=== PATIENT | male | born 1970 | race Caucasian/White ===

== ENCOUNTER 2018-04-05 12:51 | Emergency (ER) | payer BC ==
[2018-04-05] MEDS ORDERED: Benzocaine 20% Topical Spray UD MUCMEM ONE (13:09)
[2018-04-05] MEDS ORDERED: Lidocaine 2% Viscous Solution 15 ML Cup PO ONE (13:09)
--- NOTE | 2018-04-05 13:27 | EDM.PDOC ---
ED HPI GENERAL MEDICAL PROBLEM - General Chief Complaint: ENT Problem Stated Complaint: TOOTHACHE Time Seen by Provider: 04/05/18 13:21 Source of Information: Reports: Patient History Limitations: Reports: No Limitations - History of Present Illness INITIAL COMMENTS - FREE TEXT/NARRATIVE: HISTORY AND PHYSICAL: []47-year-old male presenting with a cracked tooth History of Present Illness: []Patient was eating caramel popcorn last night and bit down on a kernel which cracked his filling He could only get into the dentist on April 09 has an appointment at that time He is here seeking pain medication asked for Vicodin I have explained to him that we do not give Vicodin for tooth pain His and him have expressed understanding of the reasoning that was explained Review of Systems: As per history of present illness and below otherwise all systems reviewed and negative. Past medical history: As per history of present illness and as reviewed below otherwise noncontributory. Surgical history: As per history of present illness and as reviewed below otherwise noncontributory. Social history: No reported history of drug or alcohol abuse. Family history: As per history of present illness and as reviewed below otherwise noncontributory. Physical exam: Patient is alert and oriented answering questions appropriately in full sentences without any short shortness of breath. Patient is nontoxic in appearance. HEENT: Atraumatic, normocehpalic, pupils reactive, negative for conjunctival pallor or scleral icterus, mucous membranes moist, throat clear, neck supple, nontender, trachea midline. Tooth #30 with filling that is cracked no edema noted to the gumline Lungs: Clear to auscultation, breath sounds equal bilaterally, chest non tender. Heart: S1S2, regular, negative for clicks, rubs, or JVD. Abdomen: Soft, nondistended, nontender. Negative for masses or hepatossplenmegaly. Negative for costovertebral tenderness. Pelvis: Stable nontender. Genitourinary: Deferred. Rectal: Deferred Extremities: Atraumatic, negative for cords or calf pain. Neurovascular unremarkable. Neuro: Awake, alert, oriented. Cranial nerves II through XII unremarkable. Cerebellum unremarkable. Motor and sensory unremarkable throughout. Exam nonfocal. She tolerated all procedures well Diagnostics: [] Therapeutics: []Dental balls Impression: []Cracked filling Plan: []Discharge Not to chew on the right side of your teeth 2. Appointment on April 09 to see her dentist for permanent resolution of this injury Definitive disposition and diagnosis as appropriate pending reevaluation and review of above. Onset: Sudden Duration: Hour(s):, Getting Worse Location: Reports: Face Quality: Reports: Stabbing Severity: Moderate Improves with: Reports: None Worsens with: Reports: None Associated Symptoms: Reports: No Other Symptoms right lower dental Pain Score (Numeric/FACES): 8 - Related Data Allergies Allergy/AdvReac Type Severity Reaction Status Date / Time No Known Allergies Allergy Verified 04/05/18 13:12 Home Meds: Home Meds . [No Known Home Meds] 04/05/18 [History] Past Medical History - Past Health History Medical/Surgical History: Denies Medical/Surgical History - Infectious Disease History Infectious Disease History: Reports: Chicken Pox Social & Family History - Family History Family Medical History: Noncontributory - Tobacco Use Smoking Status *Q: Never Smoker - Recreational Drug Use Recreational Drug Use: No ED ROS ENT - Review of Systems Review Of Systems: ROS reveals no pertinent complaints other than HPI. ED EXAM, ENT - Physical Exam Exam: See Below (see dictation) Course - Vital Signs Last Recorded V/S: Last Vital Signs Temp 36.3 C 04/05/18 13:04 Pulse 68 04/05/18 13:04 Resp 20 04/05/18 13:04 BP 179/89 H 04/05/18 13:04 Pulse Ox 97 04/05/18 13:04 - Orders/Labs/Meds Meds: Medications Discontinued Medications Generic Name Dose Route Start Last Admin Trade Name Nahunq PRN Reason Stop Dose Admin Benzocaine 2 each 04/05/18 13:09 Hurricaine One 20% MUCMEM 04/05/18 13:10 ONETIME ONE Lidocaine HCl 15 ml 04/05/18 13:09 Xylocaine 2% Viscous PO 04/05/18 13:10 ONETIME ONE Departure - Departure Time of Disposition: 13:25 Disposition: Home, Self-Care 01 Condition: Good Clinical Impression: Pain, dental - Discharge Information Referrals: PCP,None [Primary Care Provider] - Additional Instructions: The following information is given to patients seen in the emergency department who are being discharged to home. This information is to outline your options for follow-up care. We provide all patients seen in our emergency department with a follow-up referral. The need for follow-up, as well as the timing and circumstances, are variable depending upon the specifics of your emergency department visit. If you don't have a primary care physician on staff, we will provide you with a referral. We always advise you to contact your personal physician following an emergency department visit to inform them of the circumstance of the visit and for follow-up with them and/or the need for any referrals to a consulting specialist. The emergency department will also refer you to a specialist when appropriate. This referral assures that you have the opportunity for followup care with a specialist. All of these measure are taken in an effort to provide you with optimal care, which includes your followup. Under all circumstances we always encourage you to contact your private physician who remains a resource for coordinating your care. When calling for followup care, please make the office aware that this follow-up is from your recent emergency room visit. If for any reason you are refused follow-up, please contact the [facility] emergency department at and asked to speak to the emergency department charge nurse. Discharge Not to chew on the right side of your teeth 2. Appointment on April 09 to see her dentist for permanent resolution of this injury
== END 2018-04-05 13:49 | disposition home or self-care (01) ==
LOC: MW.ED 12:51
DX: K03.81 Cracked tooth (principal)
CPT/HCPCS: 99282; A9270

== ENCOUNTER 2021-07-03 10:37 | Day surgery (SDC) | payer BC ==
[~2021-07-03 10:37] MED LIST: Midazolam 1 MG/ML 2 ML SDV ONE; Propofol 200 MG/20 ML SDV ONE
[2021-07-03] MEDS ORDERED: Lactated Ringers 1,000 ML IV SCH (11:00)
--- NOTE | 2021-07-03 11:19 | PCM.PREANE ---
Preanesthetic Assessment - Procedure Proposed Procedure: Colonoscopy - Anesthesia/Transfusion/Family Hx Anesthesia History: No Prior Anesthesia Family History of Anesthesia Reaction: No Transfusion History: Prior Transfusion Reaction - Review of Systems General: No Symptoms Pulmonary: No Symptoms Cardiovascular: No Symptoms Gastrointestinal: No Symptoms (Occas HB-tx with antiacids) Neurological: No Symptoms Other: Reports: None - Physical Assessment NPO Status Date: 07/01/21 NPO Status Time: 19:00 (Solids, >4 hr Liq) Vital Signs: Last Vital Signs Temp 98.1 F 07/03/21 11:06 Pulse 79 07/03/21 11:06 Resp 16 07/03/21 11:06 BP 150/97 H 07/03/21 11:06 Pulse Ox 97 07/03/21 11:06 Height: 6 ft 3 in Weight: 113.398 kg (obesity) ASA Class: 2 Mental Status: Alert & Oriented x3 Airway Class: Mallampati = 2 Dentition: Reports: Normal Dentition Thyro-Mental Finger Breadths: 3 Mouth Opening Finger Breadths: 3 ROM/Head Extension: Full Lungs: Clear to Auscultation, Normal Respiratory Effort Cardiovascular: Regular Rate, Regular Rhythm - Allergies Allergies/Adverse Reactions: Allergies Allergy/AdvReac Type Severity Reaction Status Date / Time No Known Allergies Allergy Verified 06/27/21 11:31 - Acknowledgements Anesthesia Type Planned: General Anesthesia Pt an Appropriate Candidate for the Planned Anesthesia: Yes Alternatives and Risks of Anesthesia Discussed w Pt/Guardian: Yes Pt/Guardian Understands and Agrees with Anesthesia Plan: Yes PreAnesthesia Questionnaire - Past Health History Medical/Surgical History: Denies Medical/Surgical History HEENT History: Reports: Other (See Below) Other HEENT History: wears glasses, has upper permanent dental bridge Cardiovascular History: Reports: Other (See Below) Other Cardiovascular History: hx of palpitations- "related to stress" Respiratory History: Reports: None Gastrointestinal History: Reports: None Genitourinary History: Reports: None Musculoskeletal History: Reports: Back Pain, Chronic Neurological History: Reports: Other (See Below) Other Neuro History: currently has reduced sensation in right leg Psychiatric History: Reports: None Endocrine/Metabolic History: Reports: Obesity/BMI 30+ Hematologic History: Reports: None Immunologic History: Reports: None Oncologic (Cancer) History: Reports: None Dermatologic History: Reports: None - Infectious Disease History Infectious Disease History: Reports: Chicken Pox - Past Surgical History Head Surgeries/Procedures: Reports: None HEENT Surgical History: Reports: None Cardiovascular Surgical History: Reports: None Respiratory Surgical History: Reports: None GI Surgical History: Reports: None Male Surgical History: Reports: None Neurological Surgical History: Reports: None Musculoskeletal Surgical History: Reports: None Dermatological Surgical History: Reports: None - SUBSTANCE USE Tobacco Use Status *Q: Never Tobacco User Tobacco Use Within Last Twelve Months: No Recreational Drug Use History: No - HOME MEDS Home Medications: Home Meds . [No Known Home Meds] 04/05/18 [History] - CURRENT (IN HOUSE) MEDS Current Meds: Current Medications Lactated Ringer's (Ringers, Lactated) 1,000 mls @ 125 mls/hr IV ASDIRECTED MARIZA Discontinued Medications Midazolam HCl (Midazolam 1 Mg/Ml 2 Ml Sdv) Confirm Administered Dose 2 mg .ROUTE .STK-MED ONE Stop: 07/03/21 07:26 Propofol (Propofol 200 Mg/20 Ml Sdv) Confirm Administered Dose 400 mg .ROUTE .STK-MED ONE Stop: 07/03/21 07:26
[2021-07-03] MEDS ORDERED: Propofol 200 MG/20 ML SDV ONE (11:24)
[2021-07-03] MEDS ORDERED: Midazolam 1 MG/ML 2 ML SDV ONE (11:30)
--- NOTE | 2021-07-03 11:48 | PCM.OPNOTE ---
- General Post-Op/Procedure Note Date of Surgery/Procedure: 07/03/21 Operative Procedure(s): colonoscopy Findings: normal colon dictation number [id number] Pre Op Diagnosis: Screening colonoscopy Post-Op Diagnosis: normal colonoscopy Anesthesia Technique: TEODORO Primary Surgeon: Jaes Meza Pathology: none Complications: None Condition: Good
--- NOTE | 2021-07-03 11:53 | PCM.POSTAN ---
POST ANESTHESIA ASSESSMENT - MENTAL STATUS Mental Status: Alert, Oriented - VITAL SIGNS Vital Signs: Last Vital Signs Temp 98.1 F 07/03/21 11:06 Pulse 79 07/03/21 11:06 Resp 16 07/03/21 11:06 BP 150/97 H 07/03/21 11:06 Pulse Ox 97 07/03/21 11:06 - RESPIRATORY Respiratory Status: Respiratory Rate WNL, Airway Patent, O2 Saturation Stable - CARDIOVASCULAR CV Status: Pulse Rate WNL, Blood Pressure Stable - GASTROINTESTINAL GI Status: No Symptoms - PAIN Pain Score: 0 - POST OP HYDRATION Hydration Status: Adequate & Stable
--- NOTE | 2021-07-03 11:54 | PCM.POSTAN ---
POST ANESTHESIA ASSESSMENT - MENTAL STATUS Mental Status: Alert, Oriented - VITAL SIGNS Vital Signs: Last Vital Signs Temp 98.1 F 07/03/21 11:06 Pulse 79 07/03/21 11:06 Resp 16 07/03/21 11:06 BP 150/97 H 07/03/21 11:06 Pulse Ox 97 07/03/21 11:06 - RESPIRATORY Respiratory Status: Respiratory Rate WNL, Airway Patent, O2 Saturation Stable - CARDIOVASCULAR CV Status: Pulse Rate WNL, Blood Pressure Stable - GASTROINTESTINAL GI Status: No Symptoms - POST OP HYDRATION Hydration Status: Adequate & Stable
--- NOTE | 2021-07-03 11:59 | PCM48HPAN ---
Post Anesthesia Note - EVALUATION WITHIN 48HRS OF ANESTHETIC Vital Signs in Normal Range: Yes Patient Participated in Evaluation: Yes Respiratory Function Stable: Yes Airway Patent: Yes Cardiovascular Function Stable: Yes Hydration Status Stable: Yes Pain Control Satisfactory: Yes Nausea and Vomiting Control Satisfactory: Yes Mental Status Recovered: Yes Vital Signs: Last Vital Signs Temp 98.1 F 07/03/21 11:06 Pulse 79 07/03/21 11:06 Resp 16 07/03/21 11:06 BP 150/97 H 07/03/21 11:06 Pulse Ox 97 07/03/21 11:06 - COMMENTS/OBSERVATIONS Free Text/Narrative:: Pt doing well post-op. VSS. No apparent anesthetic complications. Dr. Luis Alberto Parks
--- NOTE | 2021-07-04 10:24 | OR ---
SURGEON: GABRIELA SANTIAGO MD DATE OF PROCEDURE: 07/03/2021 PREOPERATIVE DIAGNOSIS: Screening colonoscopy. POSTOPERATIVE DIAGNOSIS: Normal colonoscopy. PRIMARY SURGEON: Gabriela Santiago MD ANESTHESIA: With Anesthesiology. EXTENT OF THE COLONOSCOPY: To the cecum. BOWEL PREP: Excellent. LIMITATIONS: None. PROCEDURE PERFORMED: Colonoscopy. REASON FOR PROCEDURE: Patient is a pleasant 50-year-old gentleman. He has never had a colonoscopy before. He denies any blood in his stool. He denies any family history of colon cancer. PROCEDURE IN DETAIL: Physical exam was performed. The major risks and benefits associated with the procedure were explained to the patient in detail. The patient verbalized understanding and agreement of the same. The patient was then connected to appropriate monitoring device, IV started. EKG, pulse, pulse oximetry, blood pressure, and capnography were monitored throughout the procedure. Continuous oxygen and sedation were provided by the anesthesiologist. Patient was placed in left lateral decubitus position. Sedation began. After adequate sedation was achieved, a digital rectal exam was performed. No rectal masses or polyps felt. Now, a well-lubricated Olympus colonoscope was inserted into the rectum and advanced under direct visualization to the level of the cecum. Cecum was identified by both visual and anatomic landmarks. Photographs were taken of the cecal cap. Terminal ileum was also intubated. Scope was then slowly withdrawn in a somewhat circular fashion looking at the color, texture, anatomy, and integrity of the mucosa from the cecum to the anal canal. The patient had very minimal light liquid stool which was suctioned and irrigated out for an excellent look at the mucosa. No lesions or polyps were seen. Scope was retroflexed in the rectum. Scope was completely removed, and the procedure was terminated. ENDOSCOPIC DIAGNOSIS: Normal colonoscopy. RECOMMENDATIONS: Followup colonoscopy in 10 years. He will need one sooner if he develops signs and symptoms such as change in bowel habits or blood in the stool. CADENCE / AYAKA /[id number]
== END 2021-07-03 12:25 | disposition home or self-care (01) ==
LOC: MW.SDS 10:37
PROVIDERS: ATTEND Surgery
DX: Z12.11 Encounter for screening for malignant neoplasm of colon (principal); K21.9 Gastro-esophageal reflux disease without esophagitis; I10 Essential (primary) hypertension; E66.9 Obesity, unspecified; Z68.31 Body mass index [BMI] 31.0-31.9, adult
CPT/HCPCS: 00812; J2250; J2704; J7120